=== PATIENT | male | born 1990 | race Caucasian/White ===

== ENCOUNTER → 2020-03-30 | Outpatient (CLI) | payer OTHER ==
--- NOTE | 2020-03-31 08:35 | US ---
EXAMINATION TYPE: US thyroid st tissue head/neck DATE OF EXAM: 03/30/2020 COMPARISON: NONE CLINICAL HISTORY: E04.9 goiter. GLAND SIZE: Right Lobe: 4.6 x 1.2 x 1.5 cm Overall Parenchyma: homogenous Left Lobe: 4.6 x 1.1 x 1.6 cm Overall Parenchyma: homogeneous Isthmus Thickness: 0.2 cm NODULES RIGHT: # of nodules measured on right: 0 LEFT: # of nodules measured on left: 0 ISTHMUS: # of nodules measured in the isthmus: 0 Bilateral neck scanned, no evidence of lymphadenopathy. IMPRESSION: No distinct abnormality appreciated.
== END | disposition home or self-care (01) ==
LOC: RADUSWWP 15:34
PROVIDERS: ATTEND Family Medicine
DX: E04.9 Nontoxic goiter, unspecified (principal)
CPT/HCPCS: 76536